=== PATIENT | female | born 1950 ===

== ENCOUNTER 2018-11-01 15:51 | Outpatient (REF) | payer MEDICARE, OTHER, SELFPAY | END 2018-11-01 16:11 | LOC: NCHCN 15:51 | PROVIDERS: PCP Specialist/Technologist Athletic Trainer; Visit Provider Specialist/Technologist Athletic Trainer | DX: R35.0 Frequency of micturition (principal) | CPT/HCPCS: 87077; 87086; 87186 ==

== ENCOUNTER 2019-01-26 13:39 | Outpatient (REF) | payer MEDICARE, SELFPAY | END 2019-01-26 13:59 | LOC: NCHCN 13:39 | PROVIDERS: PCP Specialist/Technologist Athletic Trainer; Visit Provider Family Medicine | DX: N39.0 Urinary tract infection, site not specified (principal) | CPT/HCPCS: 87086 ==